=== PATIENT | male | born 1970 | race Caucasian/White ===

== ENCOUNTER 2016-06-11 17:47 | Emergency (ER) | payer OTHER ==
[2016-06-11 17:56] VITALS: TEMP 98.2; BMI 28.6
--- NOTE | 2016-06-11 18:11 | PDOC ---
[id number] 100 06/11/16 17:51 06/11/16 17:51 06/11/16 17:51 06/11/16 17:51 06/11/16 17:51 ED Treatment Course - LABORATORY CBC & Chemistry Diagram: 06/11/16 18:35 06/11/16 18:35 Progress Note - Progress Note Progress Note: brief triage assessment 45 man with hx of cerebral aneurysm x 2 with bleed, s/p clipping x 2 presents today with left shoulder and back pain went to PMD and sent to ED for eval no hx of htn, dm, or hld pos hx of smoking pain was not positional with arm movement, but was much worse with leaning forward to try to tie the shoes exam clear lungs nl heart normal pulses assess shoulder and back pain of uncertain etiology orders for cxr, labs, into main ed for full eval *DC/Admit/Observation/Transfer Diagnosis at time of Disposition: Shoulder pain, left Qualifiers: Chronicity: acute Qualified Code(s): M25.512 - Pain in left shoulder - Discharge Dispostion Disposition: HOME - Prescriptions Prescriptions: Ibuprofen 600 mg PO TID #21 tablet - Referrals Referrals: Bobby Meza MD [Primary Care Provider] - - Patient Instructions Printed Discharge Instructions: DI for Shoulder Pain Additional Instructions: Please take medication as prescribe and follow up with Dr. Meza this week. If you experience sudden headache, weakness to one side, chest pain, shortness of breath, palpitations, dizziness, or any new or worsening symptoms, please return to the ER.
[2016-06-11 18:48] LABS: BASOPHIL 0.3 % (0-2.0); EOSINOPHIL 3.4 % (0-4.5); MCH 28.8 pg (25.7-33.7); MEAN CELL VOLUME 84.8 fl (80-96); MEAN PLT VOLUME 7.9 fl (7.5-11.1); NEUTROPHILS 61.7 % (42.8-82.8); PLATELET COUNT 181 K/MM3 (134-434); RDW 14.5 % (11.9-15.9); WHITE BLOOD COUNT 9.4 K/mm3 (4.0-10.0)
--- NOTE | 2016-06-11 19:12 | PDOC ---
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 Patient states that he started having left neck pain that was worse when he bent over to tie his shoe. He went to sleep last night and woke up at 2 AM with stabbing pain very localized into the left shoulder and one spot went back to sleep and woke up again with it worse. Took Advil. No chest pain, shortness of breath, fever or any symptoms and make him concerned regarding his aneurysm or having a stroke. Patient states he has residual left-sided weakness. Patient states that the pain is much better than it was at 5 AM. Patient states he also had lower back pain earlier today but that has resolved. GENERAL/CONSTITUTIONAL: No fever, weakness. dizziness HEAD, EYES, EARS, NOSE AND THROAT: No change in vision. No ear pain or discharge. No sore throat. CARDIOVASCULAR: No chest pain RESPIRATORY: No shortness of breath or cough GASTROINTESTINAL: No pain, nausea, vomiting, diarrhea or constipation GENITOURINARY: No dysuria MUSCULOSKELETAL: +neck, shoulder, back pain SKIN: No rash NEUROLOGIC: No headache, vertigo, loss of consciousness, or loss of sensation. GENERAL: The patient is awake, alert, and fully oriented, in no acute distress. HEAD: Normal with no signs of trauma. EYES: Pupils equal, round and reactive to light, sclera anicteric, conjunctiva clear. ENT: pharynx: no erythema, no exudate, uvula midline NECK: supple CHEST: clear, nontender, rr ABD: soft, nontender EXTREMITIES: Normal range of motion, no edema. Strength 5 out of 5 upper and lower extremities, no sensory deficits NEUROLOGICAL: Normal speech, normal gait. SKIN: Warm, Dry 06/11/16 23:57 <Rosa Parks - Last Filed: 06/11/16 23:52> - History of Present Illness Initial Comments: 06/12/16 00:18 Sign-out received from outgoing ER provider []. Pt interviewed and examined. Ancillary studies reviewed/ <Radha Holt - Last Filed: 06/12/16 00:18> - General Chief Complaint: Pain Stated Complaint: PCP SENT/PAIN Time Seen by Provider: 06/11/16 18:08 Past History <Tonia Blankenship - Last Filed: 06/11/16 20:13> - Surgical History Neurologic Surgery: Yes (brain clipps from aneurysm) - Immunization History Immunization Up to Date: No - Psycho/Social/Smoking Cessation Hx Anxiety: No Suicidal Ideation: No Smoking History: Never smoked Have you smoked in the past 12 months: Yes Number of Cigarettes Smoked Daily: 10 Information on smoking cessation initiated: Yes 'Breaking Loose' booklet given: 06/11/16 Hx Alcohol Use: No Drug/Substance Use Hx: No Substance Use Type: None <Rosa Parks - Last Filed: 06/11/16 23:52> <Radha Holt - Last Filed: 06/12/16 00:18> - Past Medical History Allergies/Adverse Reactions: Allergies Allergy/AdvReac Type Severity Reaction Status Date / Time No Known Allergies Allergy Verified 06/11/16 17:49 Home Medications: Ambulatory Orders NK [No Known Home Medication] 06/11/16 *Physical Exam - Vital Signs Last Vital Signs Temp Pulse Resp BP Pulse Ox 98.2 F 60 18 148/78 100 06/11/16 17:51 06/11/16 17:51 06/11/16 17:51 06/11/16 17:51 06/11/16 17:51 <Tonia Blankenship - Last Filed: 06/11/16 20:13> - Vital Signs Last Vital Signs Temp Pulse Resp BP Pulse Ox 98.2 F 60 18 148/78 100 06/11/16 17:51 06/11/16 17:51 06/11/16 17:51 06/11/16 17:51 06/11/16 17:51 <Rosa Parks - Last Filed: 06/11/16 23:52> - Vital Signs Last Vital Signs Temp Pulse Resp BP Pulse Ox 98.2 F 52 L 18 132/67 100 06/11/16 17:51 06/11/16 23:04 06/11/16 23:04 06/11/16 23:04 06/11/16 23:04 <Radha Holt - Last Filed: 06/12/16 00:18> Heart Score/ECG Review - ECG Impressions Comment:: 06/11/16 20:13 Sinus bradycardia @54bpm Left posterior fascicular block Nonspecific ST and T wave abnormality Abnormal ECG <Tonia Blankenship - Last Filed: 06/11/16 20:13> - ECG Intrepretation Comment:: 06/11/16 21:[address] Perez for first ekg EKG done at 2103, sinus bradycardia at 51, no ST changes, QTC 416, both reviewed by Dr. Perez 06/11/16 23:57 <Rosa Parks - Last Filed: 06/11/16 23:52> ED Treatment Course - LABORATORY CBC & Chemistry Diagram: 06/11/16 18:35 06/11/16 18:35 - ADDITIONAL ORDERS Additional order review: Laboratory Results 06/11/16 06/11/16 06/11/16 18:35 18:35 18:35 INR 1.04 PTT (Actin FS) 35.8 H Blood Type A POSITIVE Antibody Screen Negative 06/11/16 18:35 RBC 4.69 MCV 84.8 MCHC 34.0 RDW 14.5 MPV 7.9 Neutrophils % 61.7 Lymphocytes % 26.3 Monocytes % 8.3 Eosinophils % 3.4 Basophils % 0.3 <Tonia Blankenship - Last Filed: 06/11/16 20:13> - LABORATORY CBC & Chemistry Diagram: 06/11/16 18:35 06/11/16 18:35 - ADDITIONAL ORDERS Additional order review: 06/11/16 18:35 RBC 4.69 MCV 84.8 MCHC 34.0 RDW 14.5 MPV 7.9 Neutrophils % 61.7 Lymphocytes % 26.3 Monocytes % 8.3 Eosinophils % 3.4 Basophils % 0.3 <Rosa Parks - Last Filed: 06/11/16 23:52> - LABORATORY CBC & Chemistry Diagram: 06/11/16 18:35 06/11/16 18:35 - ADDITIONAL ORDERS Additional order review: Laboratory Results 06/11/16 06/11/16 06/11/16 23:15 21:30 21:05 INR PTT (Actin FS) Sodium Potassium Chloride Carbon Dioxide Anion Gap BUN Creatinine Creat Clearance w eGFR Random Glucose Calcium Total Bilirubin AST ALT Alkaline Phosphatase Creatine Kinase Cancelled Creatine Kinase Index CK-MB (CK-2) Cancelled CK-MB (CK-2) Rel Index Cancelled Troponin I Cancelled Total Protein Albumin Blood Type Antibody Screen 06/11/16 06/11/16 06/11/16 21:05 18:35 18:35 INR PTT (Actin FS) 35.8 H Sodium Potassium Chloride Carbon Dioxide Anion Gap BUN Creatinine Creat Clearance w eGFR Random Glucose Calcium Total Bilirubin AST ALT Alkaline Phosphatase Creatine Kinase 178 Creatine Kinase Index CK-MB (CK-2) CK-MB (CK-2) Rel Index Cancelled Troponin I < 0.02 Total Protein Albumin Blood Type Antibody Screen 06/11/16 06/11/16 06/11/16 18:35 18:35 18:35 INR 1.04 PTT (Actin FS) Sodium 140 Potassium 4.4 Chloride 104 Carbon Dioxide 27 Anion Gap 9 BUN 15 Creatinine 0.8 Creat Clearance w eGFR > 60 Random Glucose 77 Calcium 8.8 Total Bilirubin 0.7 AST 15 ALT 24 Alkaline Phosphatase 59 Creatine Kinase 196 Creatine Kinase Index 2.8 CK-MB (CK-2) 5.514 H CK-MB (CK-2) Rel Index Troponin I < 0.02 Total Protein 7.1 Albumin 4.2 Blood Type Antibody Screen 06/11/16 18:35 INR PTT (Actin FS) Sodium Potassium Chloride Carbon Dioxide Anion Gap BUN Creatinine Creat Clearance w eGFR Random Glucose Calcium Total Bilirubin AST ALT Alkaline Phosphatase Creatine Kinase Creatine Kinase Index CK-MB (CK-2) CK-MB (CK-2) Rel Index Troponin I Total Protein Albumin Blood Type A POSITIVE Antibody Screen Negative 06/11/16 18:35 RBC 4.69 MCV 84.8 MCHC 34.0 RDW 14.5 MPV 7.9 Neutrophils % 61.7 Lymphocytes % 26.3 Monocytes % 8.3 Eosinophils % 3.4 Basophils % 0.3 <Radha Holt - Last Filed: 06/12/16 00:18> Medical Decision Making - Medical Decision Making The 45-year-old male with vague shoulder pain since last night who was sent to rule out any cardiac issues. EKG, labs, chest x-ray sent. Troponin was negative, CK-MB was slightly elevated, discussed with Dr. Perez, will send a second troponin and CK-MB, he evaluated patient, unlikely cardiac but will evaluate fully given the abnormal finding 12 AM patient signed out to Radha Holt, awaiting labs, and reevaluation. Patient was updated on status. <Rosa Parks - Last Filed: 06/11/16 23:52> *DC/Admit/Observation/Transfer <Tonia Blankenship - Last Filed: 06/11/16 20:13> <Rosa Parks - Last Filed: 06/11/16 23:52> <Radha Holt - Last Filed: 06/12/16 00:18> Diagnosis at time of Disposition: Shoulder pain, left Qualifiers: Chronicity: acute Qualified Code(s): M25.512 - Pain in left shoulder - Referrals Referrals: Bobby Meza MD [Primary Care Provider] -
[2016-06-11 19:20] LABS: INR 1.04 (0.82-1.09); PROTHROMBIN TIME (PATIENT) 11.4 SEC (9.98-11.88)
[2016-06-11 20:24] LABS: ALBUMIN 4.2 g/dl (3.4-5.0); ANION GAP 9 (8-16); CALCIUM 8.8 mg/dL (8.5-10.1); CO2 27 mmol/L (21-32); CREATININE 0.8 mg/dL (0.7-1.3); GLUCOSE,RANDOM 77 mg/dL (74-106); SGOT/AST 15 U/L (15-37); SGPT/ALT 24 U/L (12-78)
[2016-06-11 20:26] LABS: ALK PHOS 59 U/L (45-117); BILIRUBIN,TOTAL 0.7 mg/dL (0.2-1.0); TOT PROT 7.1 g/dl (6.4-8.2)
[2016-06-11 20:27] LABS: TROPONIN I < 0.02 ng/ml (0.00-0.05)
[2016-06-11 21:48] LABS: TROPONIN I < 0.02 ng/ml (0.00-0.05)
[2016-06-11 23:05] VITALS: BP 132/67; PULSE 52
[2016-06-11] MEDS ORDERED: IBUPROFEN 600 MG TABLET (FP) PO ONE (23:36)
--- NOTE | 2016-06-12 00:36 | PDOC ---
*Physical Exam - Vital Signs Last Vital Signs Temp Pulse Resp BP Pulse Ox 98.2 F 52 L 18 132/67 100 06/11/16 17:51 06/11/16 23:04 06/11/16 23:04 06/11/16 23:04 06/11/16 23:04 - Physical Exam Comments: 06/12/16 00:35 Sign-out received from outgoing ER provider Kasey. Pt interviewed and examined. Ancillary studies reviewed. Awaiting repeat CK-MB. CK-MB trending down. Discussed case with ER attending Chris, patient is stable to discharge to home. Advised patient to f/u with primary care doctor by the end of the week and of signs and symptoms for return to ER. Patient verbalized understanding and agrees to plan. 06/12/16 00:37 ED Treatment Course - LABORATORY CBC & Chemistry Diagram: 06/11/16 18:35 06/11/16 18:35 - ADDITIONAL ORDERS Additional order review: Laboratory Results 06/11/16 06/11/16 06/11/16 23:15 21:30 21:05 INR PTT (Actin FS) Sodium Potassium Chloride Carbon Dioxide Anion Gap BUN Creatinine Creat Clearance w eGFR Random Glucose Calcium Total Bilirubin AST ALT Alkaline Phosphatase Creatine Kinase Cancelled Creatine Kinase Index CK-MB (CK-2) Cancelled CK-MB (CK-2) Rel Index Cancelled Troponin I Cancelled Total Protein Albumin Blood Type Antibody Screen 06/11/16 06/11/16 06/11/16 21:05 18:35 18:35 INR PTT (Actin FS) 35.8 H Sodium Potassium Chloride Carbon Dioxide Anion Gap BUN Creatinine Creat Clearance w eGFR Random Glucose Calcium Total Bilirubin AST ALT Alkaline Phosphatase Creatine Kinase 178 Creatine Kinase Index CK-MB (CK-2) 5.321 H CK-MB (CK-2) Rel Index Cancelled Troponin I < 0.02 Total Protein Albumin Blood Type Antibody Screen 06/11/16 06/11/16 06/11/16 18:35 18:35 18:35 INR 1.04 PTT (Actin FS) Sodium 140 Potassium 4.4 Chloride 104 Carbon Dioxide 27 Anion Gap 9 BUN 15 Creatinine 0.8 Creat Clearance w eGFR > 60 Random Glucose 77 Calcium 8.8 Total Bilirubin 0.7 AST 15 ALT 24 Alkaline Phosphatase 59 Creatine Kinase 196 Creatine Kinase Index 2.8 CK-MB (CK-2) 5.514 H CK-MB (CK-2) Rel Index Troponin I < 0.02 Total Protein 7.1 Albumin 4.2 Blood Type Antibody Screen 06/11/16 18:35 INR PTT (Actin FS) Sodium Potassium Chloride Carbon Dioxide Anion Gap BUN Creatinine Creat Clearance w eGFR Random Glucose Calcium Total Bilirubin AST ALT Alkaline Phosphatase Creatine Kinase Creatine Kinase Index CK-MB (CK-2) CK-MB (CK-2) Rel Index Troponin I Total Protein Albumin Blood Type A POSITIVE Antibody Screen Negative 06/11/16 18:35 RBC 4.69 MCV 84.8 MCHC 34.0 RDW 14.5 MPV 7.9 Neutrophils % 61.7 Lymphocytes % 26.3 Monocytes % 8.3 Eosinophils % 3.4 Basophils % 0.3 *DC/Admit/Observation/Transfer Diagnosis at time of Disposition: Shoulder pain, left Qualifiers: Chronicity: acute Qualified Code(s): M25.512 - Pain in left shoulder - Discharge Dispostion Disposition: HOME Condition at time of disposition: Stable Admit: No - Prescriptions Prescriptions: Ibuprofen 600 mg PO TID #21 tablet - Referrals Referrals: Bobby Meza MD [Primary Care Provider] - - Patient Instructions Printed Discharge Instructions: DI for Shoulder Pain Additional Instructions: Please take medication as prescribe and follow up with Dr. Meza this week. If you experience sudden headache, weakness to one side, chest pain, shortness of breath, palpitations, dizziness, or any new or worsening symptoms, please return to the ER. - Post Discharge Activity
--- NOTE | 2016-06-12 10:28 | EKG ---
Test Reason : Blood Pressure : / mmHG Vent. Rate : 051 BPM Atrial Rate : 051 BPM P-R Int : 148 ms QRS Dur : 098 ms QT Int : 452 ms P-R-T Axes : 030 050 044 degrees QTc Int : 416 ms SINUS BRADYCARDIA OTHERWISE NORMAL ECG WHEN COMPARED WITH ECG OF 11-JUN-2016 18:30, NO SIGNIFICANT CHANGE WAS FOUND Confirmed by ARMAND DIAZ MD ([id number]) on 06/12/2016 10:27:55 AM Referred By: Confirmed By:ARMAND DIAZ MD
--- NOTE | 2016-06-12 10:28 | EKG ---
Test Reason : Blood Pressure : / mmHG Vent. Rate : 054 BPM Atrial Rate : 054 BPM P-R Int : 156 ms QRS Dur : 098 ms QT Int : 436 ms P-R-T Axes : 000 138 145 degrees QTc Int : 413 ms SINUS BRADYCARDIA LEFT POSTERIOR FASCICULAR BLOCK NONSPECIFIC ST AND T WAVE ABNORMALITY ABNORMAL ECG NO PREVIOUS ECGS AVAILABLE Confirmed by ARMAND DIAZ MD ([id number]) on 06/12/2016 10:28:27 AM Referred By: Confirmed By:ARMAND DIAZ MD
== END 2016-06-12 01:03 | disposition home or self-care (01) ==
LOC: JER 17:47
DX: M25.512 Pain in left shoulder (principal)
CPT/HCPCS: 36415; 71020-TC; 80053; 82550; 82553; 84484; 85025; 85610; 85730; 86850; 86900; 86901; 93005; 93010; 99282-25

== ENCOUNTER 2020-11-09 17:03 | Emergency (ER) | payer BC ==
[2020-11-09 17:16] VITALS: BMI 32.4
[2020-11-09 21:51] VITALS: TEMP 98.1
[2020-11-09 21:53] VITALS: BP 112/65; PULSE 76
== END 2020-11-09 21:52 | disposition home or self-care (01) ==
LOC: JER 17:03
DX: R20.8 Other disturbances of skin sensation (principal)
CPT/HCPCS: 93971-TC; 99284-25

== ENCOUNTER 2020-12-08 06:07 | Emergency (ER) | payer BC ==
[2020-12-08 06:50] VITALS: BMI 31.8
[2020-12-08 10:45] LABS: BASO % 0.2 % (0-2.0); EOS % 0.4 % (0-4.5); HEMATOCRIT 39.2 % (35.4-49); HEMOGLOBIN 13.2 GM/dL (11.7-16.9); LYMPH % 8.8 % (8-40); MCH 28.4 pg (25.7-33.7); MCHC 33.7 g/dl (32.0-35.9); MEAN CELL VOLUME 84.3 fl (80-96); MEAN PLT VOLUME 7.9 fl (7.5-11.1); NEUT % 85.6 % (42.8-82.8); PLATELET COUNT 219 10^3/uL (134-434); RBC 4.65 M/mm3 (4.00-5.60); RDW 14.8 % (11.9-15.9); WHITE BLOOD COUNT 12.2 K/mm3 (4.0-10.0)
[2020-12-08 10:57] LABS: INR 0.95 (0.83-1.09); PROTHROMBIN TIME (PATIENT) 11.5 SEC (9.7-13.0)
[2020-12-08 11:06] LABS: ALBUMIN 3.6 g/dl (3.4-5.0); BLOOD UREA NITROGEN 17.7 mg/dL (7-18); CALCIUM 8.2 mg/dL (8.5-10.1)
[2020-12-08 11:08] VITALS: BP 125/70; PULSE 62; TEMP 98.8
[2020-12-08 11:10] LABS: CREATININE 0.7 mg/dL (0.55-1.3)
[2020-12-08 11:11] LABS: BILIRUBIN,TOTAL 0.7 mg/dL (0.2-1); TOT PROT 6.7 g/dl (6.4-8.2)
== END 2020-12-08 11:52 | disposition home or self-care (01) ==
LOC: JER 06:07
DX: K40.31 Unilateral inguinal hernia, with obstruction, without gangrene, recurrent (principal)
CPT/HCPCS: 36415; 80053; 85025; 85610; 86850; 86900; 86901; 93005; 93010; 99284-25

== ENCOUNTER 2020-12-09 04:49 | Day surgery (SDC) | payer BC ==
[2020-12-08 15:53] VITALS: BMI 31.8
[2020-12-09] MEDS ORDERED: BUPIVACAINE HCL/PF 0.5% (5MG/ML) 10 ML VIAL ONE (07:09)
[2020-12-09] MEDS ORDERED: BUPIVACAINE LIPOSOME/PF (EXPAREL) 266 MG/20 ML VIAL ONE (07:09)
[2020-12-09] MEDS ORDERED: MIDAZOLAM HCL 2 MG/2 ML SINGLE DOSE VIAL ONE ×2 (07:21)
[2020-12-09] MEDS ORDERED: PROPOFOL 20 ML ONE ×3 (07:46→11:04)
[2020-12-09] MEDS ORDERED: ROCURONIUM BROMIDE 50 MG/5 ML SYRINGE ONE ×2 (07:47→09:30)
[2020-12-09] MEDS ORDERED: ceFAZolin SODIUM 1 GM VIAL IVPB ONE (08:35)
[2020-12-09] MEDS ORDERED: GLYCOPYRROLATE 0.2 MG/1 ML VIAL ONE (09:58)
[2020-12-09] MEDS ORDERED: LIDOCAINE HCL/PF 2% SDV 5ML VIAL ONE (09:58)
[2020-12-09] MEDS ORDERED: DEXAMETHASONE SOD PHOSPHATE 4 MG/1 ML VIAL ONE (09:58)
[2020-12-09] MEDS ORDERED: NEOSTIGMINE METHYLSULFATE 0.5 MG/ML - 10 ML MDV ONE ×2 (09:58)
[2020-12-09] MEDS ORDERED: oxyCODONE HCL 5 MG TABLET PO PRN (10:56)
[2020-12-09] MEDS ORDERED: ONDANSETRON 4 MG/2 ML VIAL IVPUSH PRN (10:56)
[2020-12-09] MEDS ORDERED: LACTATED RINGERS SOLUTION 1,000 ML IV SCH (11:00)
[2020-12-09] MEDS ORDERED: oxyCODONE HCL 5 MG TABLET ONE (14:33)
[2020-12-09 14:43] VITALS: PULSE 60; TEMP 98.2
[2020-12-09 15:05] VITALS: BP 131/80
== END 2020-12-09 16:20 | disposition home or self-care (01) ==
LOC: JASU-SURG 04:49
PROVIDERS: ATTEND Surgery
PROC: 8E0W4CZ Robotic Assisted Procedure of Trunk Region, Percutaneous Endoscopic Approach (ICD-10-PCS; 2020-12-09)
PROC: 0YUA4JZ Supplement Bilateral Inguinal Region with Synthetic Substitute, Percutaneous Endoscopic Approach (ICD-10-PCS; principal; 2020-12-09 08:00)
DX: K40.20 Bilateral inguinal hernia, without obstruction or gangrene, not specified as recurrent (principal)
CPT/HCPCS: 49650; S2900; 94760